=== PATIENT | male | born 1995 | race Caucasian/White ===

== ENCOUNTER 2017-04-23 22:55 | Emergency (ER) | payer OTHER ==
[2017-04-24 00:02] VITALS: BP 129/68
== END 2017-04-24 00:02 | disposition home or self-care (01) ==
LOC: ED 22:55
DX: J02.9 Acute pharyngitis, unspecified (principal); J98.01 Acute bronchospasm

== ENCOUNTER 2018-02-09 16:04 | Emergency (ER) | payer OTHER ==
[~2018-02-09] VITALS: Ht 170.2 cm; Wt 75.5 kg
[2018-02-09 16:20] VITALS: Ht 170.2 cm; Wt 75.5 kg
[2018-02-09 19:29] VITALS: BP 129/84
== END 2018-02-09 19:29 | disposition home or self-care (01) ==
LOC: ED 16:04
DX: S86.812A Strain of other muscle(s) and tendon(s) at lower leg level, left leg, initial encounter (principal); X50.1XXA Overexertion from prolonged static or awkward postures, initial encounter; Y93.67 Activity, basketball; Y92.89 Other specified places as the place of occurrence of the external cause; Y99.8 Other external cause status
CPT/HCPCS: J1885

== ENCOUNTER 2018-07-19 13:28 | Emergency (ER) | payer OTHER ==
[~2018-07-19] VITALS: Ht 170.2 cm; Wt 73.9 kg
[2018-07-19 13:41] VITALS: Ht 170.2 cm; Wt 73.9 kg
[2018-07-19 15:23] VITALS: BP 117/68
== END 2018-07-19 15:23 | disposition home or self-care (01) ==
LOC: ED 13:28
DX: J02.9 Acute pharyngitis, unspecified (principal); Z91.030 Bee allergy status
CPT/HCPCS: J0696; J1885; J2930

== ENCOUNTER 2018-07-20 10:27 | Emergency (ER) | payer OTHER ==
[~2018-07-20] VITALS: Ht 170.2 cm; Wt 75.3 kg
[2018-07-20 10:39] VITALS: BP 129/69; Ht 170.2 cm; Wt 75.3 kg
== END 2018-07-20 11:28 | disposition home or self-care (01) ==
LOC: ED 10:27
DX: J02.9 Acute pharyngitis, unspecified (principal)

== ENCOUNTER 2020-04-11 19:13 | Emergency (ER) | payer OTHER, SELFPAY ==
[~2020-04-11] VITALS: Ht 170.2 cm; Wt 74.8 kg
[2020-04-11 19:23] VITALS: Ht 170.2 cm; Wt 74.8 kg
[2020-04-11 20:06] VITALS: BP 123/68
== END 2020-04-11 20:04 | disposition home or self-care (01) ==
LOC: ED 19:13
DX: R05 Cough (principal); R06.02 Shortness of breath; Z20.828 Contact with and (suspected) exposure to other viral communicable diseases
CPT/HCPCS: U0003-CS